=== PATIENT | male | born 1990 | race American Indian/Alaskan Native ===

== ENCOUNTER 2021-05-26 15:35 | Emergency (ER) | payer SELFPAY ==
[2021-05-26] MEDS ORDERED: ACETAMINOPHEN 500 MG TAB PO STA (18:11)
[2021-05-26] MEDS ORDERED: KETOROLAC 10 MG TAB PO ONE (18:11)
--- NOTE | 2021-05-26 18:34 | Emergency Department Report ---
ED General Adult HPI - General Chief complaint: Extremity Injury, Lower Stated complaint: WRIST INJURY Time Seen by Provider: 05/26/21 17:59 Source: patient Mode of arrival: Ambulatory Limitations: No Limitations - History of Present Illness Initial comments: 30-year-old -[place] male patient presents with complaints of left wrist pain x 2 to 3 weeks. Patient states the pain began after he caught a falling heavy object. He rates his pain as 7/10 in severity and it states it worsens with certain ROMs. He denies any numbness/tingling/weakness, fever, or skin changes. Pain improves with ibuprofen and immobilization. He denies any past medical history - Related Data Previous Rx's Medication Instructions Recorded Last Taken Type Naproxen 500 mg PO BID PRN #20 tablet 05/26/21 Unknown Rx predniSONE [Deltasone] 20 mg PO BID 3 Days #6 tab 05/26/21 Unknown Rx Allergies Allergy/AdvReac Type Severity Reaction Status Date / Time No Known Allergies Allergy Verified 05/26/21 17:44 ED Review of Systems ROS: Stated complaint: WRIST INJURY Other details as noted in HPI Constitutional: denies: diaphoresis, fever, malaise, weakness Musculoskeletal: joint swelling, arthralgia Skin: denies: change in color Neurological: denies: numbness, paresthesias ED Past Medical Hx - Past Medical History Previous Medical History?: No - Surgical History Past Surgical History?: No - Social History Smoking Status: Unknown if ever smoked - Medications Home Medications: Home Medications Medication Instructions Recorded Confirmed Last Taken Type Naproxen 500 mg PO BID PRN #20 tablet 05/26/21 Unknown Rx predniSONE [Deltasone] 20 mg PO BID 3 Days #6 tab 05/26/21 Unknown Rx ED Physical Exam - General Limitations: No Limitations General appearance: alert, in no apparent distress - Head Head exam: Present: atraumatic, normocephalic - Eye Eye exam: Present: normal appearance - Respiratory Respiratory exam: Absent: respiratory distress - Cardiovascular Cardiovascular Exam: Present: regular rate - Expanded Upper Extremity Exam Left Forearm Wrist exam: Present: tenderness (ttp noted over lateral wrist without swelling, warmth, or skin changes; +tobin's test ) Hand Wrist exam: Present: normal inspection, full ROM. Absent: tenderness, swelling, laceration Vascular: Present: normal capillary refill. Absent: pulse deficit radial art, pulse deficit ulnar art - Neurological Exam Neurological exam: Present: alert, oriented X3 - Psychiatric Psychiatric exam: Present: normal affect, normal mood - Skin Skin exam: Present: warm, dry, intact, normal color. Absent: rash ED Course Vital Signs 05/26/21 05/26/21 17:38 19:25 Temperature 98.9 F Pulse Rate 70 68 Respiratory 18 18 Rate Blood Pressure 134/90 Blood Pressure 120/80 [Right] O2 Sat by Pulse 99 100 Oximetry - Procedure Description Procedures done: Velcro wrist splint applied to left wrist. Pt tolerated procedure well without any immediate complications. He denies any increased pain or numbness/tingling. He has normal capillary refill post splint application ED Medical Decision Making - Radiology Data Radiology results: report reviewed LEFT WRIST 5 VIEWS INDICATION / CLINICAL INFORMATION: Lateral left wrist pain, pain along first metacarpal. COMPARISON: None available. FINDINGS: BONES and JOINT(S): No acute fracture or subluxation. No significant arthritis. SOFT TISSUES: No significant abnormality. ADDITIONAL FINDINGS: None. IMPRESSION: 1. No acute findings. - Medical Decision Making 30-year-old -[place] male patient presents with complaints of left wrist pain x 2 to 3 weeks. Patient states the pain began after he caught a falling heavy object. He rates his pain as 7/10 in severity and it states it worsens with certain ROMs. He denies any numbness/tingling/weakness, fever, or skin changes. Pain improves with ibuprofen and immobilization. He denies any past medical history Xray is negative for any acute bony abnormalities. Will treat for de quervain's tenosynovitis, however I do recommend pt follows up with orthopedics for further evaluation and treatment. Pt was placed in a wrist immobilizer. He is well appearing and stable for d/c home. Strict return precautions were discussed in detail with pt who verbalizes understanding. Critical care attestation.: If time is entered above; I have spent that time in minutes in the direct care of this critically ill patient, excluding procedure time. ED Disposition Clinical Impression: Left wrist injury Disposition: HOME / SELF CARE / HOMELESS Is pt being admited?: No Condition: Stable Instructions: De Quervain's Tenosynovitis Prescriptions: predniSONE [Deltasone] 20 mg PO BID 3 Days #6 tab Naproxen 500 mg PO BID PRN #20 tablet PRN Reason: pain Referrals: [facility] [Provider Group] - 3-5 Days
--- NOTE | 2021-05-26 18:54 | XRay Report ---
LEFT WRIST 5 VIEWS INDICATION / CLINICAL INFORMATION: Lateral left wrist pain, pain along first metacarpal. COMPARISON: None available. FINDINGS: BONES and JOINT(S): No acute fracture or subluxation. No significant arthritis. SOFT TISSUES: No significant abnormality. ADDITIONAL FINDINGS: None. IMPRESSION: 1. No acute findings. Signer Name: Casey Castro MD Signed: 05/26/2021 6:50 PM Workstation Name: [id number]
[2021-05-26 19:26] VITALS: BP 120/80
== END 2021-05-26 19:25 | disposition home or self-care (01) ==
LOC: ED 15:35
DX: S69.82XA Other specified injuries of left wrist, hand and finger(s), initial encounter (principal); W22.8XXA Striking against or struck by other objects, initial encounter; Y93.89 Activity, other specified; Y92.89 Other specified places as the place of occurrence of the external cause; Y99.8 Other external cause status
CPT/HCPCS: 99283